=== PATIENT | male | born 1970 | race Caucasian/White ===

== ENCOUNTER 2021-07-13 06:38 | Outpatient (REF) | payer OTHER, SELFPAY ==
[2021-07-13 11:15] LABS: Appearance Urine CLEAR; Color Urine YELLOW; Glucose Urine UA NEG (NEG); Leukocyte Esterase Urine NEG (NEG); Nitrite Urine NEG (NEG); PH 6.5 (5.0-8.0); Urine Blood NEG (NEG); Urine Ketones NEG (NEG); Urine Protein NEG (NEG-TRACE)
[2021-07-13 11:45] LABS: Alanine Aminotransferase 20 U/L (0-40); Albumin Level 4.6 g/dL (3.5-5.0); Alkaline Phosphatase 56 U/L (39-117); Anion Gap 13 (12-20); Aspartate Amino Transferase 19 U/L (5-37); Bilirubin Total 0.5 mg/dL (0.0-1.0); Blood Urea Nitrogen 19 mg/dL (9-16); Calcium 9.8 mg/dL (8.4-10.2); Carbon Dioxide 29 mmol/L (22-29); Chloride 104 mmol/L (96-108); Cholesterol 198 mg/dL; Estimated Glomerular Filt Rate > 60; Glucose Fasting 78 mg/dL (60-99); HDL Cholesterol 51 mg/dL; LDL Cholesterol Calculated 130 mg/dl; Potassium 4.6 mmol/L (3.3-5.1); Sodium 141 mmol/L (135-145); Total Protein 6.9 g/dL (6.5-8.0); Triglycerides 87 mg/dL
[2021-07-13 12:09] LABS: TSH reflex Free T4 1.01 uIU/mL (0.32-4.0)
== END 2021-07-13 06:39 | disposition home or self-care (01) ==
LOC: HO.HMGCLDS 06:38
PROVIDERS: PCP Nurse Practitioner Family; Visit Provider Nurse Practitioner Family
DX: Z00.00 Encounter for general adult medical examination without abnormal findings (principal); Z13.29 Encounter for screening for other suspected endocrine disorder; Z13.220 Encounter for screening for lipoid disorders
CPT/HCPCS: 36415; 80053; 80061; 81003; 84443

== ENCOUNTER → 2022-09-19 11:28 | Outpatient (BNVA) | payer OTHER, SELFPAY | PROVIDERS: PCP Nurse Practitioner Family; Visit Provider Internal Medicine | DX: Z13.89 Encounter for screening for other disorder (principal) ==

== ENCOUNTER 2022-10-27 10:02 | Outpatient (REF) | payer OTHER, SELFPAY ==
[2022-10-27 11:29] LABS: Appearance Urine Clear; Color Urine Yellow; Glucose Urine UA Negative (Negative); Leukocyte Esterase Urine Trace (Negative); Nitrite Urine Negative (Negative); PH 7.5 (5.0-9.0); Specific Gravity - Urine 1.015 (1.005-1.025); UMIC TRIGGER UACC YES; Urine Blood Negative (Negative); Urine Ketones Negative (Negative); Urine Protein Negative (Neg-Trace)
[2022-10-27 11:32] LABS: Bacteria Urine None Seen (None Seen); Hyaline Casts Urine 0-2 /LPF (0-2); RBC Urine 0-2 /HPF (0-2); Squamous Epithelial Cell Urine 0-2 /HPF (0-2); WBC Urine 0-5 /HPF (0-5)
[2022-10-27 11:44] LABS: MANUAL DIFF FLAG NO
[2022-10-27 12:01] LABS: Basophils Absolute Auto 0.1 X10*3/uL (0.0-0.2); Basophils Percent Auto 1.9 % (0-2); Eosinophils Absolute Auto 0.1 X10*3/uL (0.0-0.4); Eosinophils Percent Auto 1.3 % (0-4); Hematocrit 46.3 % (42.0-52.0); Hemoglobin 15.6 g/dl (14.0-18.0); Imm Gran Abs Auto 0.01 X10*3/uL (0.00-0.03); Imm Gran Pct Auto 0.2 % (0.0-0.4); Lymphocytes Absolute Auto 1.9 X10*3/uL (1.2-4.9); Lymphocytes Percent Auto 35.5 % (20-40); Mean Corpuscular HGB Conc 33.7 g/dl (31.0-36.0); Mean Corpuscular Hemoglobin 30.8 pg (27.0-33.0); Mean Corpuscular Volume 91.5 fL (80.0-98.0); Mean Platelet Volume 9.5 fL (9.4-12.4); Monocytes Absolute Auto 0.4 X10*3/uL (0.1-1.2); Monocytes Percent Auto 8.4 % (2-11); Neutrophils Absolute Auto 2.7 x10*3/uL (2.0-8.3); Neutrophils Percent Auto 52.7 % (45-73); Platelet Count 309 X10*3/uL (160-400); Red Blood Count 5.06 X10*6/uL (4.60-5.80); White Blood Count 5.2 X10*3/uL (4.8-10.8)
[2022-10-27 12:07] LABS: Alanine Aminotransferase 27 U/L (0-40); Albumin Level 4.9 g/dL (3.5-5.0); Alkaline Phosphatase 63 U/L (39-117); Anion Gap 11 (12-20); Aspartate Amino Transferase 21 U/L (5-37); Bilirubin Total 0.8 mg/dL (0.0-1.0); Blood Urea Nitrogen 17 mg/dL (9-16); Calcium 9.7 mg/dL (8.4-10.2); Carbon Dioxide 29 mmol/L (22-29); Chloride 106 mmol/L (96-108); Cholesterol 206 mg/dL; Estimated Glomerular Filt Rate > 60; Glucose Fasting 87 mg/dL (60-99); HDL Cholesterol 61 mg/dL; LDL Cholesterol Calculated 133 mg/dl; Potassium 4.6 mmol/L (3.3-5.1); Sodium 141 mmol/L (135-145); Total Protein 7.2 g/dL (6.5-8.0); Triglycerides 60 mg/dL
[2022-10-27 12:24] LABS: Prostate Specific Antigen Scr 0.81 ng/mL (<0.05-4.0); TSH reflex Free T4 0.99 uIU/mL (0.32-4.0)
== END 2022-10-27 10:03 | disposition home or self-care (01) ==
LOC: HO.HMGCLDS 10:02
PROVIDERS: PCP Nurse Practitioner Family; Visit Provider Nurse Practitioner Family
DX: Z00.00 Encounter for general adult medical examination without abnormal findings (principal); Z12.5 Encounter for screening for malignant neoplasm of prostate; E78.5 Hyperlipidemia, unspecified
CPT/HCPCS: 36415; 80053; 80061; 81001; 84153; 84443; 85025

== ENCOUNTER 2023-01-10 14:00 | Outpatient (RCR) | payer OTHER, SELFPAY ==
--- NOTE | 2022-10-27 10:15 | MHC.PT.EP ---
[facility] [place] Office [place] Office [place] Office [address] Nadia Bernstein [address] [phone] F: [phone] F: [phone] F: [phone] F: [phone] Physical Therapy Plan of Care Date of Evaluation: Date of Surgery: Diagnosis: This is a 52 yo male presenting to skilled PT with a script for pain in the R shoulder Assessment: This is a 52 yo male presenting to skilled PT with a script for pain in the R shoulder. 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 He can recall a time that he was doing presses behind his head and started to develop some soreness. Pain improves with rest. He reports full ROM however does have some clicking. Pain is described as sharp. He has been limiting his lifting regime, limiting sleeping on the R shoulder and throwing motions. Pain comes and goes. Denies numbness or tingling, radiating symptoms into shoulder blade or arm. 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 Assessment reveals pain that ranges from 0-3/10. Patient demos decreased shoulder ROM, strength of scapular stabilizers, forward head and anterior GHJ posture. He is very active but modifying activities due to pain that isn't resolving on its own. Based on functional limitations, impaired QOL and decreased pain tolerance patient is a good candidate for skilled PT 2x/wk for 4wks. 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 Manual therapy to restore motion and function. Therapeutic exercise to improve strength and flexibility. Neuromuscular re-education for posture and balance. Therapeutic activities to return to functional activities of daily living. Electronically signed by: Mari Harp PT Please sign and return to therapist. Thank you for your referral.
--- NOTE | 2023-01-10 14:46 | MHC.PT.DC ---
[facility] [place] Office [place] Office [place] Office [address] Nadia Bernstein 140 [facility] [phone] F: [phone] F: [phone] F: [phone] F: [phone] Physical Therapy Discharge Report Diagnosis: This is a 52 yo male presenting to skilled PT with a script for pain in the R shoulder Date of Surgery: Date of Evaluation: 10/27/22 Date of Discharge: 01/10/23 Treatments to Date: 4 Cancellations to Date: 0 No Shows to Date: 0 Discharge Status: Achieved Goals Improved Function Independent with HEP Recommend MD Follow-up Discharge Summary: 01/10: Patient returns again reporting pain has improved, he notices it on occasion when stretching into adduction and after lifting sessions but this is mild. I educated him on impingement positions and posture. He has been faithful with HEP and I also educated him on what to do moving forward with exercises in that he needs to work all muscles not just chest and biceps. He demos WNL and full ROM and strength and cannot really reproduce his pain with any certain movements at our session today. I educated him that if the residual mild pain continues to bother him it may be worth while to get a referral to speak with a orthopedic to talk about a trial of cortisone as this has helped him in the past. At this point, he is I with his program, has met his goals and is ready for DC. DC to HEP. Electronically signed by: Mari Harp PT Please sign and return to therapist. Thank you for your referral.
== END 2023-01-10 14:46 | disposition home or self-care (01) ==
LOC: HO.PTCHIC 14:00
PROVIDERS: PCP Nurse Practitioner Family; Visit Provider Nurse Practitioner Family
DX: M25.511 Pain in right shoulder (principal)
CPT/HCPCS: 97110; 97161

== ENCOUNTER 2023-02-15 10:25 | Day surgery (SDC) | payer OTHER, SELFPAY ==
[2023-02-13 11:58] VITALS: BMI 25.5
[2023-02-13 12:07] VITALS: BMI 25.8
[2023-02-15 10:54] VITALS: BP 126/92; PULSE 54; RESP 16; TEMP 36.3; O2SAT 99
[2023-02-15] MEDS: Lactated Ringers 1,000 ML 100 ML IVCONT (11:12)
--- NOTE | 2023-02-15 11:13 | P.CONAN_ITS ---
[facility] Active Problems Active Problems: All Active Problems (Updated 10/24/22 @ 07:22 by FABIAN Astudillo) Right shoulder pain (Acute) Screening PSA (prostate specific antigen) (Acute) Screen for colon cancer (Acute) Chest discomfort (Acute) Encounter for screening for COVID-19 (Acute) Physical exam (Acute) Family History Family History Father No problems noted. Mother HTN (hypertension) Maternal Grandfather Myocardial infarction Maternal Uncle Myocardial infarction Family history of problems with anesthesia: No Surgical History Surgical History No pertinent past surgical history History of Problems with Anesthesia: Unobtainable Social History Social History Household Members Other:: tony rodriguez Housing: House Are you a primary foster care case manager to a significant other at home: No Do you presently have visiting nurse or other home services: No Alcohol intake: never Patient Tobacco Use Status: Former Tobacco user Tobacco use type: Cigarette Years Smoked: 5 years ago e-Cigarette/Vaping Use: Currently Using Second Hand Smoke Exposure: No Use of substances other than those prescribed or required for medical reasons: Yes Substance Use Type Other:: edible Substance Use Frequency: Daily Have you been hit, kicked, punched, or otherwise hurt by someone within the past year? If so, by whom?: No Are you DNR?: No Advance Directives: No Advance Directives Information Provided: Yes Advance Directives on File: No Recently lost weight without trying: No Eating poorly because of decreased appetite: No Nutrition Risks: No Nutritional Risk Poor oral hygiene: No service: No Current occupational status: employed Current occupation: [employer] Current occupational exposures/hazards: No Cognitive needs: No Hearing needs: No Vision needs: No Meds Allergies Allergy/AdvReac Type Severity Reaction Status Date / Time dimenhydrinate Allergy Unknown UNKNOWN Verified 10/24/22 07:25 [From DRAMAMINE] lisinopril [LISINOPRIL] Allergy Unknown ANGIOEDEMA, Verified 10/24/22 07:25 swollen face/lips/mouth/eyes gasoline Allergy Unknown hives Uncoded 10/24/22 07:25 Active Medications: Current Medications Lactated Ringer's (Lr) 1,000 mls @ 100 mls/hr IVCONT .Q10H STEVE Last Admin: 02/15/23 11:12 Dose: 100 mls/hr Ondansetron HCl (Ondansetron Hcl 4 Mg/2 Ml Vial) 4 mg IVPUSH ONCE PRN PRN Reason: Nausea and Vomiting Exam Exam Date and Time: February 15, 2023 1113 Height,Weight and Vital Signs: Height 5 ft 11 in Weight 83.915 kg Last Vital Signs Temp 97.3 F 02/15/23 10:54 Pulse 54 02/15/23 10:54 Resp 16 02/15/23 10:54 BP 126/92 H 02/15/23 10:54 Pulse Ox 99 02/15/23 10:54 O2 Del Method Room Air 02/15/23 10:54 Airway Mallampati Class: II TM Dist: >3cm Neck ROM: Full Loose/Missing/Broken Teeth: No Heart: rrr Lungs: clear Assessment and Plan Final Anesthetic Review Family History of Problems with Anesthesia: No History of Problems with Anesthesia: Unobtainable NPO: Yes ASA Class: I Final Preanesthetic Review: No Changes in Pt Med Stat, Meds/Allgs Chart Reviewed, Consent Obtained/Reviewed and Anes Risks/Benef Reviewed Patient Risk: Low Procedure Risk: Low Anesthetic Plan Anesthetic Plan: MAC: Disposition: Standard PACU
--- NOTE | 2023-02-15 12:48 | P.OP_ITS ---
Operative Note Operative Note Date of Service: 02/15/23 Narrative: Procedure: Colonoscopy Indication: Screening Endoscopist: Zeina Jacobson MD Anesthesia Provider: Lauro Moses MD Anesthesia type: MAC Instrument: Olympus [id number]-H190L Consent: Indication, risks vs benefits, and alternatives were discussed with the patient who gave written informed consent to proceed. EKG, pulse, pulse oximetry and blood pressure were monitored throughout the procedure. Please see anesthesia flowsheet. Procedure: The patient was brought to the procedure room and placed in the left lateral decubitus position. IV medications were administered by the anesthesia provider in attendance. A digital rectal exam was performed which was normal. The colonoscope was then inserted through the anus and advanced through the colon to the cecum at 75 cm,and terminal ileum. Mucosa was carefully examined under high definition white light as the instrument was slowly withdrawn in a retrograde panoramic fashion. Retroflexion was performed in rectum. The procedure was not difficult. There were no immediate obvious complications. The quality of the prep was BBPS: 3+2+3 = adequate Withdrawal time 8 minutes. Limitations: No limitations. Findings: Mucosa: Normal to cecum and terminal ileum. Protruding lesions: * Medium internal hemorrhoids without stigmata of recent bleeding. Impression: 1. Normal colon and terminal ileum mucosa 2. Internal hemorrhoids Recommendations: - Repeat colonoscopy in 10 years for asymptomatic colorectal cancer screening.
[2023-02-15 12:54] VITALS: BP 92/58; PULSE 62; RESP 15; TEMP 36.9; O2SAT 97
[2023-02-15 13:10] VITALS: BP 109/71; PULSE 47; RESP 16; TEMP 36.4; O2SAT 100
== END 2023-02-15 14:04 | disposition home or self-care (01) ==
PROVIDERS: PCP Nurse Practitioner Family; Visit Provider Internal Medicine
PROC: 0DJD8ZZ Inspection of Lower Intestinal Tract, Via Natural or Artificial Opening Endoscopic (ICD-10-PCS; CPT 45378; principal; 2023-02-15 12:00)
DX: Z12.11 Encounter for screening for malignant neoplasm of colon (principal); K64.8 Other hemorrhoids; Z88.8 Allergy status to other drugs, medicaments and biological substances; F17.290 Nicotine dependence, other tobacco product, uncomplicated; F12.90 Cannabis use, unspecified, uncomplicated
CPT/HCPCS: 45378; J2371

== ENCOUNTER → 2023-02-15 10:25 | Outpatient (BNV) | payer OTHER, SELFPAY | PROVIDERS: PCP Nurse Practitioner Family; Visit Provider Internal Medicine | DX: Z12.11 Encounter for screening for malignant neoplasm of colon (principal); K64.8 Other hemorrhoids | CPT/HCPCS: 45378 ==

== ENCOUNTER 2023-03-01 14:09 | Outpatient (AMB) | payer OTHER, SELFPAY ==
[2023-03-01 14:21] VITALS: BMI 26.7
--- NOTE | 2023-03-01 14:21 | A.OFFVIS_ITS ---
Intake Vital Signs 03/01/23 14:21 Height 5 ft 11 in Weight 191 lb 12.835 oz BMI 26.7 Blood Pressure Location Lt brachial Position Sitting Intake Visit Reasons: S/P [place] screening Intake Note: Davon presents in the office as a follow up colonoscopy screening. CC: He states that he is here for the results to the colonoscopy. Allergies dimenhydrinate [From DRAMAMINE] Allergy (Unknown, Verified 03/01/23 14:22) UNKNOWN lisinopril [LISINOPRIL] Allergy (Unknown, Verified 03/01/23 14:22) ANGIOEDEMA, swollen face/lips/mouth/eyes gasoline Allergy (Unknown, Uncoded 03/01/23 14:22) hives HPI HPI Comments History of Present Illness Details 52 year old male presenting to the office for follow up. 09/19/22: Patient is at average risk of colon cancer due to no family history of colon cancer or colon polyps in first degree relatives. Patient does not have any other gastrointestinal symptoms to include abdominal pain, nausea, vomiting, diarrhea, blood in stool, weight loss. Labs not available, pt reminded to get them done in the next couple of weeks. Pertinent social hx includes previous hx of heavy etOH use disorder, sober for 8 years now. Reports having a 3 week long ICU admission due to severe withdrawal. Previous tobacco smoker, now vapes occ. 02/15/23: Impression: 1. Normal colon and terminal ileum mucosa 2. Internal hemorrhoids Recommendations: - Repeat colonoscopy in 10 years for asymptomatic colorectal cancer screening. 03/01/23: No gastrointestinal issues. Happy/surprised to hear results of the colo. [facility] Surgical History (Updated 03/01/23 @ 14:23 by KIRAN Ruiz) Hx of colonoscopy No pertinent past surgical history Family History Father No problems noted. Mother HTN (hypertension) Maternal Grandfather Myocardial infarction Maternal Uncle Myocardial infarction Social History Household Members Other:: tony rodriguez Housing: House Are you a primary vision care associate to a significant other at home: No Do you presently have visiting nurse or other home services: No Alcohol intake: never Patient Tobacco Use Status: Former Tobacco user Tobacco use type: Cigarette Years Smoked: 5 years ago e-Cigarette/Vaping Use: Currently Using Second Hand Smoke Exposure: No service: No Current occupational status: employed Current occupation: [employer] Current occupational exposures/hazards: No Cognitive needs: No Hearing needs: No Vision needs: No Review of Systems Const All systems reviewed & are unremarkable except as noted in HPI and below Physical Exam Vital Signs: BMI result Body Mass Index 26.7 Gen appear: NAD HEENT: nonicteric, no cervical lymphadenopathy Chest: CTA CVS: Regular S1/S2 Abd: soft, nontender, nondistended, bowel sounds + Ext: no peripheral edema Neuro: A/Ox3, noted to move all extremities spontaneously Psych: interacting appropriately Assessment & Plan Assessment & Plan (1) Screen for colon cancer: Code(s): Z12.11 - Encounter for screening for malignant neoplasm of colon Plan No polyps noted on colo this month. Repeat colo recommended in 10 years. Pt also planning to see a dietitian for nutritional advice. Follow up PRN. Coding Level of Care Code Est Pt Level 3 (38163) Diagnoses Screen for colon cancer Z12.11
== END 2023-03-01 15:17 | disposition home or self-care (01) ==
PROVIDERS: PCP Nurse Practitioner Family; Visit Provider Internal Medicine
DX: K64.8 Other hemorrhoids (principal); Z71.2 Person consulting for explanation of examination or test findings
CPT/HCPCS: 99213

== ENCOUNTER → 2023-03-01 14:09 | Outpatient (BNVA) | payer OTHER, SELFPAY | PROVIDERS: PCP Nurse Practitioner Family; Visit Provider Internal Medicine ==

== ENCOUNTER 2023-03-23 06:49 | Outpatient (REF) | payer OTHER, SELFPAY ==
--- NOTE | ~2023-03-23 | XR_ITS ---
EXAMINATION: XR SHOULDER, RIGHT CLINICAL INFORMATION: Right shoulder pain COMPARISON: None available. TECHNIQUE: Three views of the right shoulder. FINDINGS: Mild glenohumeral osteoarthritis with small marginal osteophytes. Minimal acromioclavicular osteoarthritis. No fracture or malalignment. XR/XR shoulder RT min 2V IMPRESSION: Mild glenohumeral and minimal acromioclavicular osteoarthritis.
== END 2023-03-23 06:50 | disposition home or self-care (01) ==
LOC: HO.HOSX 06:49
PROVIDERS: Visit Provider Physician Assistant
DX: M25.511 Pain in right shoulder (principal); M75.21 Bicipital tendinitis, right shoulder; M75.81 Other shoulder lesions, right shoulder
CPT/HCPCS: 20610; 73030; J1040

== ENCOUNTER 2023-03-23 14:53 | Outpatient (AMB) | payer OTHER, SELFPAY ==
--- NOTE | 2023-03-23 15:01 | MHC.OFFVIS ---
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 Patient reports pain has been present since september, he believes he did something to his shoulder. isolated to shoulder area. He will have throbbing pain with certain activities such as tennis and lifting weights. He completed PT and continues to do at home exercises. Limited ROM. He is interested in discussing a cortisone injection. 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 He states he has throbbing pain and limited ROM in his shoulder with certain activities like playing tennis or working out. He has attended physical therapy and continues to work on his home exercises. He is interested in discussing about a cortisone injection. [facility] Surgical History Hx of colonoscopy No pertinent past surgical history Family History Father No problems noted. Mother HTN (hypertension) Maternal Grandfather Myocardial infarction Maternal Uncle Myocardial infarction Social History (Updated 03/23/23 @ 15:12 by KIRAN Gonzalez) Household Members Other:: tony rodriguez Housing: House Are you a primary care support representative to a significant other at home: No Do you presently have visiting nurse or other home services: No Alcohol intake: never Patient Tobacco Use Status: Current everyday Tobacco user Tobacco use type: Cigarette Years Smoked: 5 years ago e-Cigarette/Vaping Use: Currently Using Second Hand Smoke Exposure: No service: No Current occupational status: employed Current occupation: [employer] Current occupational exposures/hazards: No Cognitive needs: No Hearing needs: No Vision needs: No Review of Systems Const All systems reviewed & are unremarkable except as noted in HPI and below Physical Exam Vital Signs: BMI result Body Mass Index 26.6 Const General: cooperative, healthy appearing, comfortable, no acute distress, well developed and alert Orientation/consciousness: patient oriented x3 HEENT Head: Yes normal to inspection, Yes normocephalic and Yes atraumatic Eyes General: appearance normal, both eyes and all related structures Resp Effort & Inspection: normal respiratory effort and able to speak in complete sentences Cardio Rate: regular rate Peripheral pulses: Peripheral pulses 2+ throughout GI Palpation (GI): Soft to palpation Skin Lesions: no lesions Rashes: no rashes Neuro General: patient oriented x3 Extrem Other: Right shoulder normal to inspection. Tenderness over the bicipital groove and along the deltoid region of the shoulder. Forward flexion to 175, external rotation to 90, internal rotation to S1. 5/5 RTC strength. Positive [place] and [place]'s. NVI. Office Procedures Joint Injection/Drain Joint Injection/Drain Primary Site: right shoulder Prep: site was prepped using aseptic technique, ethochloride spray was applied and injection warnings given Injected: 80 mg of, DepoMedrol, with 8 mL of, 1% plain lidocaine and in the subcromial space Approach Used: posterolateral Procedure: The patient tolerated the procedure well and there was some relief with the local anesthesia Coding 29606 - Glenohumeral/Tronchanteric Bursa/Intraarticular Procedure code (CPT) selection complete Results Reviewed Results Reviewed: 03/23/23 15:34 Lidocaine HCl 2 % MPF [Xylocaine 2 % MPF] 5 ml .ROUTE .STK-MED ONE methylPREDNISolone acetate [DEPO-MedroL] 80 mg .ROUTE .STK-MED ONE Xrays were obtained in the office today and personally reviewed by me of the right shoulder show mild ghj oa with type two acromion Assessment & Plan Assessment & Plan (1) Biceps tendonitis on right: Code(s): M75.21 - Bicipital tendinitis, right shoulder (2) Tendinitis of right rotator cuff: Code(s): M75.81 - Other shoulder lesions, right shoulder Plan We discussed options today which include steroid injection. They did consent to move forward with the right shoulder injection, which was tolerated well. I recommended rest, ice and elevation and OTC anti-inflammatories PRN for discomfort. If symptoms persist or worsens over the next 6-8 weeks, patient will contact the office, otherwise follow-up as needed. Orders: Orders XR shoulder RT min 2V Today M25.511 - Pain in right shoulder Patient Instructions: Scribed for Edgar Freitas PA-C, by Kirt Boswell, medical records manager, on 03/23/2023 at 3:00 PM EST. I, Edgar Freitas PA-C, have personally reviewed and agree with the information entered by the scribe. Coding Level of Care Code New Pt Level 3 (68027) Diagnoses Biceps tendonitis on right M75.21 Tendinitis of right rotator cuff M75.81 CPT Codes Coding - Joint 7: 59955 - Glenohumeral/Tronchanteric Bursa/Intraarticular ([id number])
[2023-03-23 15:15] VITALS: BMI 26.6
== END 2023-03-23 15:56 | disposition home or self-care (01) ==
PROVIDERS: PCP Nurse Practitioner Family; Visit Provider Physician Assistant
DX: M75.21 Bicipital tendinitis, right shoulder (principal); M75.81 Other shoulder lesions, right shoulder
CPT/HCPCS: 20610; 99204

== ENCOUNTER 2023-07-05 10:27 | Outpatient (AMB) | payer OTHER, SELFPAY ==
--- NOTE | 2023-07-05 10:30 | A.OFFPC_ITS ---
Vital Signs 07/05/23 10:32 Height 5 ft 11 in Weight 172 lb BMI 24.0 BP 130/82 Blood Pressure Location Lt brachial Position Sitting Pulse 64 Pulse Source Pulse Oximeter Pulse Oximetry (%) 98 Oxygen Delivery Method Room Air Intake Visit Reasons: PE Intake Note: Patient here for physical exam. last colonoscopy in December Allergies dimenhydrinate [From DRAMAMINE] Allergy (Unknown, Verified 07/05/23 10:46) UNKNOWN lisinopril [LISINOPRIL] Allergy (Unknown, Verified 07/05/23 10:46) ANGIOEDEMA, swollen face/lips/mouth/eyes gasoline Allergy (Unknown, Uncoded 07/05/23 10:46) hives Medication List - Last Reconciled 07/05/23 by FABIAN Astudillo nicotine 1 patch transdermal DAILY 30 days Tobacco use date assessed: 07/05/23 Dental Screening Dental Screen Date: 07/05/23 Did you have a dental visit in the last 12 months?: No Did you have a dental problem in the last 6 months where you did not have access to dental care?: No Was dental information given to patient?: No HPI PE HPI Details Pt is here for a PE. Will order labs. Colon screen is up to date. PSA is up to date. Denies dribbling with urination, weak stream, and frequent nocturia. PFSH Surgical History Hx of colonoscopy No pertinent past surgical history Family History Father No problems noted. Mother HTN (hypertension) Maternal Grandfather Myocardial infarction Maternal Uncle Myocardial infarction Social History Household Members Other:: tony rodriguez Housing: House Are you a primary care coordination manager to a significant other at home: No Do you presently have visiting nurse or other home services: No Alcohol intake: never Patient Tobacco Use Status: Current someday Tobacco user Tobacco use type: Cigarette Years Smoked: 5 years ago e-Cigarette/Vaping Use: Currently Using Second Hand Smoke Exposure: No service: No Current occupational status: employed Current occupation: [employer] Current occupational exposures/hazards: No Cognitive needs: No Hearing needs: No Vision needs: No Questionnaire PHQ-9 Over the last 2 weeks, how often have you been bothered by any of the following problems? 1. Little interest or pleasure in doing things: not at all 2. Feeling down, depressed, or hopeless: not at all 3. Trouble falling or staying asleep, or sleeping too much: not at all 4. Feeling tired or having little energy: not at all 5. Poor appetite or overeating: not at all 6. Feeling bad about yourself - or that you are a failure or have let yourself or your family down: not at all 7. Trouble concentrating on things, such as reading the newspaper or watching television: not at all 8. Moving or speaking so slowly that other people could have noticed. Or the opposite - being so fidgety or restless that you have been moving around a lot more than usual: not at all 9. Thoughts that you would be better off or of hurting yourself in some way: not at all Total score: 0 Depression Screening Interpretation: Negative Depression Screening Done: Yes 12442 - PHQ-9 Billing: Yes Source: Developed by Drs. Ishmael Peres, Maria Villasenor, Alex Ureña and colleagues, with an educational karyn from [employer]. Thrive Questionnaire Date Thrive assessed: 07/05/23 I am a: Patient What is your living situation today?: I have a steady place to live Within the past 12 months, did the food you bought not last and you didn't have the money to get more?: Never true Within the past 12 months, did you worry whether your food would run out before you got money to buy more?: Never true Do you have trouble paying for medicines?: No Do you have trouble getting transportation to medical appointments?: No Do you have trouble paying your heating and electricity bill?: No Do you have trouble taking care of your child, family member or friend?: No Do you have trouble with day-to-day activities such as bathing, preparing meals, shopping, managing finances, etc.?: No Are you currently unemployed and looking for a job?: No Are you interested in more education?: No AUDIT C Alcohol Use Questionnaire (AUDIT-C) 1. How often do you have a drink containing alcohol?: Never 3. How often do you have six or more drinks on one occasion?: Never Total Score: 0 Score Reviewed/Action Taken: No LYNN-7 AMB Questionnaire LYNN-7 Date LYNN - 7 assessed: 07/05/23 Feeling nervous, anxious, or on edge: 0 = Not at all Not being able to stop or control worryin = Not at all Worrying too much about different things: 0 = Not at all Trouble relaxin = Not at all Being so restless that it is hard to sit still: 0 = Not at all Becoming easily annoyed or irritable: 0 = Not at all Feeling afraid as if something awful might happen: 0 = Not at all Total LYNN-7 score (0-4 normal; 5-9 mild; 10-14 moderate; 15-21 severe): 0 Source: Developed by Drs. Ishmael Peres, Maria Villasenor, Alex Ureña and colleagues, with an educational karyn from [employer]. LYNN-7 Assessment Billing LYNN-7 Assessment Tool: LYNN-7 Assessment 63255 Review of Systems Const Denies chills and Denies fever(s) Eyes Denies blurry vision ENT Denies vertigo, Denies dizziness and Denies sore throat Card Denies chest pain at rest, Denies chest pain with activity, Denies diaphoresis, Denies dyspnea and Denies dyspnea on exertion Resp Denies cough, Denies dyspnea, Denies dyspnea on exertion and Denies wheezing GI Denies abdominal pain, Denies melena, Denies hematochezia, Denies constipation, Denies diarrhea and Denies loose stools Denies hematuria Musc Denies numbness and Denies tingling Skin/Breast Denies lesions Neuro Denies vertigo, Denies dizziness, Denies numbness and Denies tingling Psych Denies anxiety, Denies depression, Denies homicidal ideation, Denies suicidal ideation and Denies other (substance abuse) Aller/Immun Denies wheezing Physical exam (Primary Care) Vital Signs: Last Vital Signs Pulse 64 07/05/23 10:32 BP 130/82 07/05/23 10:32 Pulse Ox 98 07/05/23 10:32 Oxygen Delivery Method Room Air 07/05/23 10:32 BMI result Body Mass Index 24.0 Tobacco/Smoking Status: Tobacco use Status Tobacco use date assessed 07/05/23 07/05/23 10:34 Patient Tobacco Use Status Current someday Tobacco 07/05/23 10:34 Tobacco use type Cigarette 07/05/23 10:32 e-Cigarette/Vaping Use Currently Using 07/05/23 10:32 Depression Screening Interpretation: Negative Thrive Assessment: Date of Thrive Assessment Date Thrive assessed 07/04/22 07/05/23 10:32 Const General: cooperative Nutritional Appearance: well nourished Orientation/consciousness: patient oriented x3 HENMT Head: Yes normal to inspection, Yes normocephalic and Yes atraumatic Ears: TM's normal bilaterally Eyes General: appearance normal, both eyes and all related structures Alignment and Position: alignment normal and position normal Neck Neck: Yes normal visual inspection and Yes no lymphadenopathy Thyroid: Thyroid normal Resp Effort & Inspection: normal respiratory effort Auscultation: clear to auscultation bilaterally Cardio Rate: regular rate Rhythm: regular rhythm Heart sounds: S1 normal heart sound present, S2 normal heart sound present and no murmurs GI Palpation (GI): Soft to palpation and nontender Auscultation: normal bowel sounds Male General Exam: Yes normal external exam Penis: normal penis Scrotum: scrotum normal, testes descended bilaterally and no inguinal hernias Testes: no testicular mass Skin Rashes: no rashes Neuro General: patient oriented x3, moves all extremities, no focal motor deficits and deep tendon reflexes 2+ bilaterally Romberg Test: Negative Psych Appearance: grossly normal Mental Status: mental status grossly normal Speech and movement: Normal speech and movement present Affect: normal affect Attitude: cooperative Thought process: Normal thought process present Thought content: Normal thought content present Insight: Good insight present (Psych) Judgement: Good judgement present (Psych) Assessment and Plan Assessment & Plan (1) Physical exam: Code(s): Z00.00 - Encounter for general adult medical examination without abnormal findings Plan: Labs ordered (2) Screening PSA (prostate specific antigen): Code(s): Z12.5 - Encounter for screening for malignant neoplasm of prostate Plan: PSA ordered Plan The patient agreed to the use of a medical delivery driver for this encounter. Scribed for FABIAN Sandoval by michelle Valladares scribe, on 07/05/2023 at 10:45 EST. Orders: Orders Complete Blood Count Auto Diff Today Z00.00 - Encounter for general adult medical examination without abnormal findings Comprehensive [place]. Panel Fast Today Z00.00 - Encounter for general adult medical examination without abnormal findings TSH reflex Free T4 Today Z00.00 - Encounter for general adult medical examination without abnormal findings Lipid Panel Today Z00.00 - Encounter for general adult medical examination without abnormal findings Prostate Specific Antigen Scr Today Z12.5 - Encounter for screening for malignant neoplasm of prostate UA CC w/rflx Micro + Cult Today Z00.00 - Encounter for general adult medical examination without abnormal findings Coding Level of Care Code Est Pt Prev Care 40-64y(10709) Diagnoses Physical exam Z00.00 Screening PSA (prostate specific antigen) Z12.5 Additional Codes LYNN-7 Assessment Billing - LYNN-7 Assessment Tool: LYNN-7 Assessment 40591 ([id number])
[2023-07-05 10:32] VITALS: BP 130/82; PULSE 64; O2SAT 98; BMI 24.0
== END 2023-07-05 13:47 | disposition home or self-care (01) ==
PROVIDERS: Visit Provider Nurse Practitioner Family
DX: Z00.00 Encounter for general adult medical examination without abnormal findings (principal); Z12.5 Encounter for screening for malignant neoplasm of prostate
CPT/HCPCS: 99396

== ENCOUNTER 2023-09-07 09:14 | Outpatient (REF) | payer OTHER, SELFPAY ==
[2023-09-07 11:18] LABS: MANUAL DIFF FLAG NO
[2023-09-07 11:30] LABS: Basophils Absolute Auto 0.1 X10*3/uL (0.0-0.2); Basophils Percent Auto 1.8 % (0-2); Eosinophils Percent Auto 0.5 % (0-4); Hematocrit 49.4 % (42.0-52.0); Hemoglobin 16.9 g/dl (14.0-18.0); Imm Gran Abs Auto 0.01 X10*3/uL (0.00-0.03); Imm Gran Pct Auto 0.2 % (0.0-0.4); Lymphocytes Absolute Auto 1.5 X10*3/uL (1.2-4.9); Lymphocytes Percent Auto 26.6 % (20-40); Mean Corpuscular HGB Conc 34.2 g/dl (31.0-36.0); Mean Corpuscular Hemoglobin 31.2 pg (27.0-33.0); Mean Corpuscular Volume 91.1 fL (80.0-98.0); Mean Platelet Volume 9.1 fL (9.4-12.4); Monocytes Absolute Auto 0.4 X10*3/uL (0.1-1.2); Monocytes Percent Auto 7.4 % (2-11); Neutrophils Absolute Auto 3.6 x10*3/uL (2.0-8.3); Neutrophils Percent Auto 63.5 % (45-73); Platelet Count 327 X10*3/uL (160-400); Red Blood Count 5.42 X10*6/uL (4.60-5.80); Red Cell Distribution Width 11.7 % (11.0-16.0); White Blood Count 5.7 X10*3/uL (4.8-10.8)
[2023-09-07 11:38] LABS: Appearance Urine Clear; Color Urine Yellow; Glucose Urine UA Negative (Negative); Leukocyte Esterase Urine Negative (Negative); Nitrite Urine Negative (Negative); PH 7.5 (5.0-9.0); Urine Blood Negative (Negative); Urine Ketones Negative (Negative); Urine Protein Negative (Neg-Trace)
[2023-09-07 12:24] LABS: Alanine Aminotransferase 28 U/L (0-40); Anion Gap 16 (12-20); Aspartate Amino Transferase 23 U/L (5-37); Bilirubin Total 0.7 mg/dL (0.0-1.0); Blood Urea Nitrogen 14 mg/dL (9-16); Carbon Dioxide 28 mmol/L (22-29); Chloride 104 mmol/L (96-108); Cholesterol 223 mg/dL (<200); Estimated Glomerular Filt Rate > 60; Glucose Fasting 89 mg/dL (60-99); HDL Cholesterol 61 mg/dL (>40); LDL Cholesterol Calculated 146 mg/dL (<100); Potassium 4.9 mmol/L (3.3-5.1); Sodium 143 mmol/L (135-145); Triglycerides 80 mg/dL (<150)
[2023-09-07 12:29] LABS: Alkaline Phosphatase 68 U/L (39-117)
[2023-09-07 12:32] LABS: Prostate Specific Antigen Scr 0.99 ng/mL (<0.05-4.0)
[2023-09-07 12:42] LABS: TSH reflex Free T4 0.76 uIU/mL (0.32-4.0)
== END 2023-09-07 09:15 | disposition home or self-care (01) ==
LOC: HO.HMGCLDS 09:14
PROVIDERS: PCP Nurse Practitioner Family; Visit Provider Nurse Practitioner Family
DX: Z00.00 Encounter for general adult medical examination without abnormal findings (principal); Z20.2 Contact with and (suspected) exposure to infections with a predominantly sexual mode of transmission; Z12.5 Encounter for screening for malignant neoplasm of prostate
CPT/HCPCS: 36415; 80053; 80061; 81003; 84153; 84443; 85025

== ENCOUNTER 2023-12-06 09:17 | Outpatient (REF) | payer OTHER, SELFPAY ==
[2023-12-06 11:15] LABS: Alanine Aminotransferase 25 U/L (0-40); Albumin Level 4.7 g/dL (3.5-5.0); Alkaline Phosphatase 65 U/L (39-117); Anion Gap 12 (12-20); Aspartate Amino Transferase 24 U/L (5-37); Bilirubin Total 0.8 mg/dL (0.0-1.0); Blood Urea Nitrogen 17 mg/dL (9-16); Calcium 9.7 mg/dL (8.4-10.2); Carbon Dioxide 26 mmol/L (22-29); Chloride 106 mmol/L (96-108); Cholesterol 137 mg/dL (<200); Estimated Glomerular Filt Rate > 60; Glucose Fasting 84 mg/dL (60-99); HDL Cholesterol 53 mg/dL (>40); LDL Cholesterol Calculated 73 mg/dL (<100); Potassium 4.1 mmol/L (3.3-5.1); Sodium 140 mmol/L (135-145); Total Protein 7.2 g/dL (6.5-8.0); Triglycerides 57 mg/dL (<150)
== END 2023-12-06 09:18 | disposition home or self-care (01) ==
LOC: HO.HMGCLDS 09:17
PROVIDERS: PCP Nurse Practitioner Family; Visit Provider Nurse Practitioner Family
DX: E78.5 Hyperlipidemia, unspecified (principal)
CPT/HCPCS: 36415; 80053; 80061

== ENCOUNTER 2023-12-07 15:22 | Outpatient (AMB) | payer OTHER, SELFPAY ==
[2023-12-07 15:24] VITALS: BP 110/78; PULSE 64; O2SAT 95; BMI 26.5
--- NOTE | 2023-12-07 15:24 | MHC.PC.OV ---
Vital Signs 12/07/23 15:24 Height 5 ft 11 in Weight 190 lb 6 oz BMI 26.5 BP 110/78 Blood Pressure Location Rt brachial Position Sitting Pulse 64 Pulse Source Pulse Oximeter Pulse Oximetry (%) 95 Oxygen Delivery Method Room Air Intake Visit Reasons: cholesterol medication f/u with labs Allergies dimenhydrinate [From DRAMAMINE] Allergy (Unknown, Verified 12/07/23 15:54) UNKNOWN lisinopril [LISINOPRIL] Allergy (Unknown, Verified 12/07/23 15:54) ANGIOEDEMA, swollen face/lips/mouth/eyes gasoline Allergy (Unknown, Uncoded 12/07/23 15:54) hives Medication List - Last Reconciled 12/07/23 by FABIAN Astudillo atorvastatin 10 mg PO BEDTIME Tobacco use date assessed: 12/07/23 Dental Screening Dental Screen Date: 12/07/23 Did you have a dental visit in the last 12 months?: No Did you have a dental problem in the last 6 months where you did not have access to dental care?: No Was dental information given to patient?: No HPI cholesterol medication f/u with labs HPI Details Dyslipidemia: Pt is taking atorvastatin 10mg. Pt's last lipids were WNL. He has been working on his diet and remaining active. Denies chest pain, shortness of breath, and dizziness. ON LICENSE OF [facility] Surgical History Hx of colonoscopy No pertinent past surgical history Family History Father No problems noted. Mother HTN (hypertension) Maternal Grandfather Myocardial infarction Maternal Uncle Myocardial infarction Social History Household Members Other:: tony rodriguez Housing: House Are you a primary complex care nurse practitioner to a significant other at home: No Do you presently have visiting nurse or other home services: No Alcohol intake: never Patient Tobacco Use Status: Current someday Tobacco user Tobacco use type: Cigarette Years Smoked: 5 years ago e-Cigarette/Vaping Use: Currently Using Second Hand Smoke Exposure: No service: No Current occupational status: employed Current occupation: [employer] Current occupational exposures/hazards: No Cognitive needs: No Hearing needs: No Vision needs: No Questionnaire PHQ-9 Over the last 2 weeks, how often have you been bothered by any of the following problems? 89427 - PHQ-9 Billing: Patient declined-do not bill Source: Developed by Drs. Ishmael Peres, Maria Villasenor, Alex Ureña and colleagues, with an educational karyn from [employer]. Thrive Questionnaire Date Thrive assessed: 07/05/23 AUDIT C Alcohol Use Questionnaire (AUDIT-C) 1. How often do you have a drink containing alcohol?: Never 3. How often do you have six or more drinks on one occasion?: Never Total Score: 0 Score Reviewed/Action Taken: Yes LYNN-7 AMB Questionnaire LYNN-7 Date LYNN - 7 assessed: 07/05/23 Source: Developed by Drs. Ishmael Peres, Maria Villasenor, Alex Ureña and colleagues, with an educational karyn from [employer]. LYNN-7 Assessment Billing LYNN-7 Assessment Tool: pt declined-do not bill Review of Systems Const Reports as per HPI Physical exam (Primary Care) Vital Signs: Last Vital Signs Pulse 64 12/07/23 15:24 BP 110/78 12/07/23 15:24 Pulse Ox 95 12/07/23 15:24 Oxygen Delivery Method Room Air 12/07/23 15:24 BMI result Body Mass Index 26.5 Tobacco/Smoking Status: Tobacco use Status Tobacco use date assessed 12/07/23 12/07/23 15:30 Patient Tobacco Use Status Current someday Tobacco 12/07/23 15:26 Tobacco use type Cigarette 12/07/23 15:26 e-Cigarette/Vaping Use Currently Using 12/07/23 15:26 Thrive Assessment: Date of Thrive Assessment Date Thrive assessed 07/05/23 12/07/23 15:26 Const General: cooperative Orientation/consciousness: patient oriented x3 Resp Effort & Inspection: normal respiratory effort Auscultation: clear to auscultation bilaterally Cardio Rate: regular rate Rhythm: regular rhythm Heart sounds: S1 normal heart sound present and S2 normal heart sound present Neuro General: patient oriented x3 Psych Appearance: grossly normal Mental Status: mental status grossly normal Speech and movement: Normal speech and movement present Affect: normal affect Attitude: cooperative Thought process: Normal thought process present Thought content: Normal thought content present Insight: Good insight present (Psych) Judgement: Good judgement present (Psych) Assessment and Plan Assessment & Plan (1) Dyslipidemia: Code(s): E78.5 - Hyperlipidemia, unspecified Plan: statin is working great, continue use. Plan The patient agreed to the use of a certified medical assistant for this encounter. Scribed for FABIAN Sandoval by Martha Gordon certified medical assistant, on 12/07/2023 at 15:30 EST. Medications: Refilled atorvastatin 10 mg PO BEDTIME 90 tabs 3RF Coding Level of Care Code Est Pt Level 3 (11349) Diagnoses Dyslipidemia E78.5
== END 2023-12-07 16:18 | disposition home or self-care (01) ==
PROVIDERS: PCP Nurse Practitioner Family; Visit Provider Nurse Practitioner Family
DX: E78.5 Hyperlipidemia, unspecified (principal)
CPT/HCPCS: 99213

== ENCOUNTER 2024-02-13 09:41 | Outpatient (AMB) | payer OTHER, SELFPAY ==
--- NOTE | 2024-02-13 09:43 | MHC.OFFWIV ---
Intake Vital Signs 02/13/24 09:44 Height 5 ft 11 in Weight 188 lb BMI 26.2 BP 102/74 Blood Pressure Location Rt brachial Position Sitting Pulse 74 Pulse Source Pulse Oximeter Temp 98.3 F Temp Source Oral Pulse Oximetry (%) 97 Oxygen Delivery Method Room Air Intake Visit Reasons: stomach ache Intake Note: pt c/o stomach ache. Started Monday evening Patient Tobacco Use Status: Current someday Tobacco user Allergies dimenhydrinate [From DRAMAMINE] Allergy (Unknown, Verified 02/13/24 09:44) UNKNOWN lisinopril [LISINOPRIL] Allergy (Unknown, Verified 02/13/24 09:44) ANGIOEDEMA, swollen face/lips/mouth/eyes gasoline Allergy (Unknown, Uncoded 02/13/24 09:44) hives Do you need a note to return to daycare/school/sports/work: No HPI HPI Comments History of Present Illness Details 53-year-old male presents today complaining of left sided lower abdominal pain that is palpable in nature. He denies any nausea vomiting diarrhea constipation. He states he feels it mostly when he standing or moving around the pain decreases well and prone position. He has no palpable lump but hit is very point tender in 1 area. Denies any particular injury or trauma. 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 Mother HTN (hypertension) Maternal Grandfather Myocardial infarction Maternal Uncle Myocardial infarction Social History Household Members Other:: tony rodriguez Housing: House Are you a primary critical care nurse practitioner to a significant other at home: No Do you presently have visiting nurse or other home services: No Alcohol intake: never Patient Tobacco Use Status: Current someday Tobacco user Tobacco use type: Cigarette Years Smoked: 5 years ago e-Cigarette/Vaping Use: Currently Using Second Hand Smoke Exposure: No service: No Current occupational status: employed Current occupation: [employer] Current occupational exposures/hazards: No Cognitive needs: No Hearing needs: No Vision needs: No Review of Systems Const All systems reviewed & are unremarkable except as noted in HPI and below Physical Exam Vital Signs: Last Vital Signs Temp 98.3 F 02/13/24 09:44 Pulse 74 02/13/24 09:44 BP 102/74 02/13/24 09:44 Pulse Ox 97 02/13/24 09:44 Oxygen Delivery Method Room Air 02/13/24 09:44 BMI result Body Mass Index 26.2 GI Inspection: Yes normal to inspection Palpation (GI): Tenderness to palpation present (GI) in the LLQ and Hernia present (No palpable mass but the pain was in the area of inguinal hernia) Auscultation: normal bowel sounds Results AMB Urinalysis, Automated UA Leukoctes 0 Lisy/uL Last Edit by Maco Roca CMA on 02/13/24 10:26 UA Nitrite Negative Last Edit by Maco Roca CMA on 02/13/24 10:26 UA Urobilinogen 0.2 mg/dL Last Edit by Maco Roca CMA on 02/13/24 10:26 UA Protein 0 mg/dL Last Edit by Maco Roca CMA on 02/13/24 10:26 UA pH 6.0 Last Edit by Maco Roca CMA on 02/13/24 10:26 UA Blood 0 Navi/uL Last Edit by Maco Roca CMA on 02/13/24 10:26 UA Specific [place] 1.020 Last Edit by Maco Roca CMA on 02/13/24 10:26 UA Ketone Negative Last Edit by Maco Roca CMA on 02/13/24 10:26 UA Bilirubin 0 mg/dL Last Edit by Maco Roca CMA on 02/13/24 10:26 UA Glucose 0 mg/dL Last Edit by Maco Roca CMA on 02/13/24 10:26 Results Reviewed Results Reviewed: Laboratory Last Values Urine pH (Auto) 6.0 02/13/24 10:25 Specific [place] (Auto) 1.020 02/13/24 10:25 Urine Protein (Auto) 0 mg/dL 02/13/24 10:25 Glucose (UA)(Auto) 0 mg/dL 02/13/24 10:25 Urine Ketones (Auto) Negative 02/13/24 10:25 Urine Blood (Auto) 0 Navi/uL 02/13/24 10:25 Urine Nitrite (Auto) Negative 02/13/24 10:25 Urine Bilirubin (Auto) 0 mg/dL 02/13/24 10:25 Urine Urobilinogen (Auto) 0.2 mg/dL 02/13/24 10:25 Leukocyte Esterase (Auto) 0 Lisy/uL 02/13/24 10:25 The patient has a past medical history of renal calculi. I did do a urinalysis just to be sure there was no hematuria. Assessment & Plan Assessment & Plan (1) Hernia of abdominal wall: Code(s): K43.9 - Ventral hernia without obstruction or gangrene Plan: I advised the patient to be seen by Urology. I also suggested he not do any heavy lifting or aggressive sports until he is seen and evaluated Plan See plan Orders: Orders AMB Urinalysis Automated Today Z13.9 - Encounter for screening, unspecified Coding Level of Care Code Est Pt Level 3 (08049) Diagnoses Hernia of abdominal wall K43.9
[2024-02-13 09:44] VITALS: BP 102/74; PULSE 74; TEMP 36.8; O2SAT 97; BMI 26.2
== END 2024-02-13 10:52 | disposition home or self-care (01) ==
PROVIDERS: PCP Nurse Practitioner Family; Visit Provider Physician Assistant Medical
DX: K43.9 Ventral hernia without obstruction or gangrene (principal); Z13.9 Encounter for screening, unspecified
CPT/HCPCS: 81003; 99213

== ENCOUNTER 2024-02-19 10:59 | Outpatient (AMB) | payer OTHER, SELFPAY ==
--- NOTE | 2024-02-19 11:02 | A.OFFPC_ITS ---
Vital Signs 02/19/24 11:17 Height 5 ft 11 in Weight 187 lb BMI 26.1 BP 126/84 Blood Pressure Location Lt brachial Position Sitting Pulse 74 Pulse Source Pulse Oximeter Temp 98.9 F Temp Source Oral Pulse Oximetry (%) 98 Oxygen Delivery Method Room Air Intake Visit Reasons: groin/abd disc Intake Note: Patient here to come up w/a plan as he has been having groin area and low grade fevers for about 1 week, pt states he has discomfort and has traveled to the other side. Allergies dimenhydrinate [From DRAMAMINE] Allergy (Unknown, Verified 02/19/24 11:16) UNKNOWN lisinopril [LISINOPRIL] Allergy (Unknown, Verified 02/19/24 11:16) ANGIOEDEMA, swollen face/lips/mouth/eyes gasoline Allergy (Unknown, Uncoded 02/19/24 11:16) hives Medication List - Last Reconciled 02/19/24 by FABIAN Astudillo atorvastatin 10 mg PO BEDTIME Tobacco use date assessed: 12/07/23 Dental Screening Dental Screen Date: 12/07/23 HPI groin/abd disc HPI Details Pt was seen in the walk-in on 02/12 c/o left lower abdominal pain. Pt had no palpable mass, though he had pain with palpation of his inguinal region. Pt was referred to general surgery for possible inguinal hernia. Pt reports ongoing pain and intermittent fevers up to 100 degrees. He reports pain that moves to his testicles. Will order CT. Denies chills, N/V/D, and constipation. PFSH Surgical History Hx of colonoscopy No pertinent past surgical history Family History Father No problems noted. Mother HTN (hypertension) Maternal Grandfather Myocardial infarction Maternal Uncle Myocardial infarction Social History Household Members Other:: tony rodriguez Housing: House Are you a primary senior care manager to a significant other at home: No Do you presently have visiting nurse or other home services: No Alcohol intake: never Patient Tobacco Use Status: Current someday Tobacco user Tobacco use type: Cigarette Years Smoked: 5 years ago e-Cigarette/Vaping Use: Currently Using Second Hand Smoke Exposure: No service: No Current occupational status: employed Current occupation: [employer] Current occupational exposures/hazards: No Cognitive needs: No Hearing needs: No Vision needs: No Questionnaire PHQ-9 Over the last 2 weeks, how often have you been bothered by any of the following problems? 1. Little interest or pleasure in doing things: not at all 2. Feeling down, depressed, or hopeless: not at all 3. Trouble falling or staying asleep, or sleeping too much: not at all 4. Feeling tired or having little energy: not at all 5. Poor appetite or overeating: not at all 6. Feeling bad about yourself - or that you are a failure or have let yourself or your family down: not at all 7. Trouble concentrating on things, such as reading the newspaper or watching television: not at all 8. Moving or speaking so slowly that other people could have noticed. Or the opposite - being so fidgety or restless that you have been moving around a lot more than usual: not at all 9. Thoughts that you would be better off or of hurting yourself in some way: not at all Total score: 0 Source: Developed by Drs. Ishmael Peres, Maria Villasenor, Alex Ureña and colleagues, with an educational karyn from [employer]. Thrive Questionnaire Date Thrive assessed: 07/05/23 I am a: Patient What is your living situation today?: I have a steady place to live Within the past 12 months, did the food you bought not last and you didn't have the money to get more?: Never true Within the past 12 months, did you worry whether your food would run out before you got money to buy more?: Never true Do you have trouble paying for medicines?: No Do you have trouble getting transportation to medical appointments?: No Do you have trouble paying your heating and electricity bill?: No Do you have trouble taking care of your child, family member or friend?: No Do you have trouble with day-to-day activities such as bathing, preparing meals, shopping, managing finances, etc.?: No Are you currently unemployed and looking for a job?: No Are you interested in more education?: No Please select the resources that you would like help with: Housing/Care Home Currently or been in a relationship where the following occur: No concerns reported THRIVE Score: 0 AUDIT C Alcohol Use Questionnaire (AUDIT-C) 1. How often do you have a drink containing alcohol?: Never Total Score: 0 LYNN-7 AMB Questionnaire LYNN-7 Date LYNN - 7 assessed: 07/05/23 Feeling nervous, anxious, or on edge: 0 = Not at all Not being able to stop or control worryin = Not at all Worrying too much about different things: 0 = Not at all Trouble relaxin = Not at all Being so restless that it is hard to sit still: 0 = Not at all Becoming easily annoyed or irritable: 0 = Not at all Feeling afraid as if something awful might happen: 0 = Not at all Total LYNN-7 score (0-4 normal; 5-9 mild; 10-14 moderate; 15-21 severe): 0 Source: Developed by Drs. Ishmael Peres, Maria Villasenor, Alex Ureña and colleagues, with an educational karyn from [employer]. Review of Systems Const Reports as per HPI Physical exam (Primary Care) Vital Signs: Last Vital Signs Temp 98.9 F 02/19/24 11:17 Pulse 74 02/19/24 11:17 BP 126/84 02/19/24 11:17 Pulse Ox 98 02/19/24 11:17 Oxygen Delivery Method Room Air 02/19/24 11:17 BMI result Body Mass Index 26.1 Tobacco/Smoking Status: Tobacco use Status Tobacco use date assessed 12/07/23 02/19/24 11:04 Patient Tobacco Use Status Current someday Tobacco 02/19/24 11:04 Tobacco use type Cigarette 02/19/24 11:04 e-Cigarette/Vaping Use Currently Using 02/19/24 11:04 PHQ-9: PHQ-9 Score PHQ-9: Total score 0 02/19/24 12:10 Thrive Assessment: Date of Thrive Assessment Date Thrive assessed 07/05/23 02/19/24 11:04 Currently or been in a relationship where the following occur: No concerns reported Const General: cooperative Orientation/consciousness: patient oriented x3 Resp Auscultation: clear to auscultation bilaterally Cardio Rate: regular rate Rhythm: regular rhythm Heart sounds: S1 normal heart sound present and S2 normal heart sound present GI Other: inguinal tenderness (mostly to left), no palpable hernia Neuro General: patient oriented x3 Psych Appearance: grossly normal Mental Status: mental status grossly normal Speech and movement: Normal speech and movement present Affect: normal affect Attitude: cooperative Thought process: Normal thought process present Thought content: Normal thought content present Insight: Good insight present (Psych) Judgement: Good judgement present (Psych) Assessment and Plan Assessment & Plan (1) Groin pain: Code(s): R10.30 - Lower abdominal pain, unspecified Plan The patient agreed to the use of a medical staff credentialing coordinator for this encounter. Scribed for FABIAN Sandoval by Martha Gordon medical staff credentialing coordinator, on 02/19/2024 at 11:25 EST. Orders: Orders Comprehensive Met. Panel Today R10.30 - Lower abdominal pain, unspecified CT abdomen pelvis w IV con Today R10.30 - Lower abdominal pain, unspecified Coding Level of Care Code Est Pt Level 3 (88514) Diagnoses Groin pain R10.30
[2024-02-19 11:17] VITALS: BP 126/84; PULSE 74; TEMP 37.2; O2SAT 98; BMI 26.1
== END 2024-02-19 12:54 | disposition home or self-care (01) ==
PROVIDERS: PCP Nurse Practitioner Family; Visit Provider Nurse Practitioner Family
DX: R10.30 Lower abdominal pain, unspecified (principal)
CPT/HCPCS: 99213

== ENCOUNTER 2024-02-23 09:17 | Outpatient (REF) | payer OTHER, SELFPAY ==
[2024-02-23 11:41] LABS: Alanine Aminotransferase 58 U/L (0-40); Albumin Level 4.3 g/dL (3.5-5.0); Alkaline Phosphatase 97 U/L (39-117); Anion Gap 16 (12-20); Aspartate Amino Transferase 34 U/L (5-37); Bilirubin Total 0.4 mg/dL (0.0-1.0); Blood Urea Nitrogen 17 mg/dL (9-16); Calcium 9.7 mg/dL (8.4-10.2); Carbon Dioxide 25 mmol/L (22-29); Chloride 105 mmol/L (96-108); Estimated Glomerular Filt Rate > 60; Glucose Random 83 mg/dL (60-115); Potassium 4.5 mmol/L (3.3-5.1); Sodium 141 mmol/L (135-145); Total Protein 7.4 g/dL (6.5-8.0)
== END 2024-02-23 09:18 | disposition home or self-care (01) ==
LOC: HO.HMGCLDS 09:17
PROVIDERS: PCP Nurse Practitioner Family; Visit Provider Nurse Practitioner Family
DX: R10.30 Lower abdominal pain, unspecified (principal)
CPT/HCPCS: 36415; 80053

== ENCOUNTER 2024-02-26 12:06 | Outpatient (REF) | payer OTHER, SELFPAY ==
--- NOTE | ~2024-02-26 | CT_ITS ---
EXAMINATION: CT ABDOMEN AND PELVIS WITH CONTRAST CLINICAL INFORMATION: Lower abdominal pain. COMPARISON: 09/25/2015 TECHNIQUE: Multidetector volumetric images were obtained from the superior aspect of the liver through the pubic symphysis following administration 60 mL of Omnipaque 350 intravenous contrast. Sagittal and coronal reformatted images were obtained on the technologist's workstation. Oral contrast: No This CT examination was performed using dose optimization techniques as appropriate, variously including the following: *Automated exposure control *Adjustment of mA and/or kV according to patient size (this includes techniques or standardized protocols for targeted exams where dose is matched to indication/reason for exam; i.e. extremities or head) *Use of iterative reconstruction technique DLP: 361 mGy-cm FINDINGS: LUNG BASES: No pleural or pericardial effusion. LIVER, GALLBLADDER, AND BILIARY TREE: The liver is decreased in attenuation. No focal hepatic lesion or biliary ductal dilatation is present. The gallbladder is unremarkable with no evidence of radiopaque gallstones, gallbladder wall thickening, or obvious pericholecystic inflammatory changes. PANCREAS: Unremarkable. SPLEEN: Unremarkable. ADRENAL GLANDS: Unremarkable. KIDNEYS AND URETERS: The kidneys are symmetric in size and enhancement. Punctate bilateral nonobstructing renal calculi. No hydronephrosis or perinephric stranding. BLADDER: Unremarkable. GASTROINTESTINAL TRACT: Small and large bowel loops are of normal caliber. No small bowel obstruction. Appendix is within normal limits. Moderate fecal retention in the colon. ABDOMINAL WALL: No significant hernia is appreciated. LYMPH NODES: Subcentimeter mesenteric lymph nodes are nonspecific. VASCULAR: Normal caliber abdominal aorta. PELVIC VISCERA: Unremarkable. OSSEOUS STRUCTURES: No destructive bone lesions. Old L1 compression fracture. Degenerative disc disease at L5-S1. CT/CT abdomen pelvis w IV con IMPRESSION: No acute abnormality in the abdomen or pelvis. Punctate bilateral nonobstructing renal calculi. No hydronephrosis.
[2024-02-26] MEDS: iohexoL 350 MG/ML 100 ML INFUS..BTL IV (12:45)
== END 2024-02-26 12:07 | disposition home or self-care (01) ==
LOC: HO.CT 12:06
PROVIDERS: PCP Nurse Practitioner Family; Visit Provider Nurse Practitioner Family
DX: R10.30 Lower abdominal pain, unspecified (principal)
CPT/HCPCS: 74177; Q9967

== ENCOUNTER 2024-02-27 10:07 | Outpatient (AMB) | payer OTHER, SELFPAY ==
--- NOTE | 2024-02-27 10:16 | A.OFFVIS_ITS ---
Vital Signs 02/27/24 10:22 Height 5 ft 11 in Weight 186 lb BMI 25.9 BP 118/80 Blood Pressure Location Rt brachial Position Sitting Pulse 53 Intake Visit Reasons: ? inguinal hernia Intake Note: Patient referred by pcp Isael Guerra PA-C for ? inguinal hernia. Patient c/o: feels bumps. Denies pain. Recent ABD US 02-26-2024. 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 Patient was quite active athletically playing a variety of sports as well as lifting weights. Noticed bilateral groin and upper thigh discomfort while doing a variety of activities ranging from tenderness to weight lifting as noted above. He has not noticed any bulge or swelling in his groins. He otherwise tolerates a diet, has regular bowel habits. No other GI issues or complaints. Patient's physician referred him here to rule out any inguinal hernia. Chart was reviewed and patient evaluated [facility] Surgical History Hx of colonoscopy No pertinent past surgical history Family History Father No problems noted. Mother HTN (hypertension) Maternal Grandfather Myocardial infarction Maternal Uncle Myocardial infarction Social History Household Members Other:: tony rodriguez Housing: House Are you a primary janitor caretaker to a significant other at home: No Do you presently have visiting nurse or other home services: No Alcohol intake: never Patient Tobacco Use Status: Current someday Tobacco user Tobacco use type: Cigarette Years Smoked: 5 years ago e-Cigarette/Vaping Use: Currently Using Second Hand Smoke Exposure: No service: No Current occupational status: employed Current occupation: [employer] Current occupational exposures/hazards: No Cognitive needs: No Hearing needs: No Vision needs: No Physical Exam Vital Signs: Last Vital Signs Pulse 53 02/27/24 10:22 BP 118/80 02/27/24 10:22 BMI result Body Mass Index 25.9 GI Other: Patient was examined both supine and standing with Valsalva. Abdomen is soft, no evidence vent any umbilical hernia. Benign. Bilateral groin exam demonstrates no obvious inguinal hernias. Genitalia grossly within normal limits. Assessment & Plan Assessment & Plan (1) Groin pain: Code(s): R10.30 - Lower abdominal pain, unspecified Category: Surgical Plan At present, no obvious inguinal hernias demonstrated. Patient most probably has a muscle strain/pull involving his groin musculature. Current recommendation is to avoid strenuous activities, ice or heat to the area whichever improved symptoms, avoiding aggravating activities, Aleve or Motrin or Tylenol p.r.n. pain. Patient otherwise follow-up p.r.n.. All questions answered. Should his symptoms progress or worsen, he is prepped, he has been instructed to call the office. Coding Level of Care Code New Pt Level 4 (40322) Diagnoses Groin pain R10.30
[2024-02-27 10:22] VITALS: BP 118/80; PULSE 53; BMI 25.9
== END 2024-02-27 10:41 | disposition home or self-care (01) ==
PROVIDERS: PCP Nurse Practitioner Family; Referring Provider Nurse Practitioner Family; Visit Provider Surgery
DX: R10.30 Lower abdominal pain, unspecified (principal)
CPT/HCPCS: 99203

== ENCOUNTER → 2024-02-27 10:07 | Outpatient (BNVA) | payer OTHER, SELFPAY | PROVIDERS: PCP Nurse Practitioner Family; Referring Provider Nurse Practitioner Family; Visit Provider Surgery ==

== ENCOUNTER 2024-05-16 10:49 | Outpatient (AMB) | payer OTHER, SELFPAY ==
[2024-05-16 11:03] VITALS: BMI 26.1
--- NOTE | 2024-05-16 11:03 | A.OFFVIS_ITS ---
VS Expanded 05/16/24 11:03 Height 5 ft 11 in Weight 186 lb 15.232 oz BMI 26.1 Intake Visit Reasons: Disease of digestive system, unspecified/LVM Allergies dimenhydrinate [From DRAMAMINE] Allergy (Unknown, Verified 02/27/24 10:21) UNKNOWN lisinopril [LISINOPRIL] Allergy (Unknown, Verified 02/27/24 10:21) ANGIOEDEMA, swollen face/lips/mouth/eyes gasoline Allergy (Unknown, Uncoded 02/27/24 10:21) hives Nutrition Presentation Details: Pt presents for MNT for unspecified digestive issues Pt c/o increased gassiness and often lack of bowel movement Pt reports choosing dairy free milk the majority of the time Typical meal Slovenian muffin with peanut butter, protein shake (whey with almond milk) one protein bar snack Eggo waffles/jam,water /coffee L: lunch meat on white bread or frozen burrito D: Benson's pie , water/coffee Takes a daily probiotic BS Monitoring Most Recent Diabetes Results: Cholesterol 137 mg/dL (<200) 12/06/23 HDL Cholesterol 53 mg/dL (>40) 12/06/23 Triglycerides 57 mg/dL (<150) 12/06/23 Creatinine 0.83 mg/dL (0.5-1.4) 02/23/24 Blood Urea Nitrogen 17 mg/dL (9-16) H 02/23/24 Sodium 141 mmol/L (135-145) 02/23/24 Potassium 4.5 mmol/L (3.3-5.1) 02/23/24 Chloride 105 mmol/L (96-108) 02/23/24 Carbon Dioxide 25 mmol/L (22-29) 02/23/24 Calcium 9.7 mg/dL (8.4-10.2) 02/23/24 AST 34 U/L (5-37) 02/23/24 ALT 58 U/L (0-40) H 02/23/24 Total Protein 7.4 g/dL (6.5-8.0) 02/23/24 Albumin 4.3 g/dL (3.5-5.0) 02/23/24 YDI-Atmaanx-Kg.Jeor Equation Height: 5 ft 11 in Weight: 187 lb Resting Metabolic Rate: 1728.57 Calculated Activity Level: Mild Activity Calories Needed to Maintain Weight: 2376.78 Diagnosis Nutrition problem #1: food nutri know defi As related to (etiology) #1: diagnosis As evidenced by (sign/symptom) #1: knowledge deficit of diet PFSH Surgical History Hx of colonoscopy No pertinent past surgical history Family History Father No problems noted. Mother HTN (hypertension) Maternal Grandfather Myocardial infarction Maternal Uncle Myocardial infarction Social History Household Members Other:: tony rodriguez Housing: House Are you a primary child care centre director to a significant other at home: No Do you presently have visiting nurse or other home services: No Alcohol intake: never Patient Tobacco Use Status: Current someday Tobacco user Tobacco use type: Cigarette Years Smoked: 5 years ago e-Cigarette/Vaping Use: Currently Using Second Hand Smoke Exposure: No service: No Current occupational status: employed Current occupation: [employer] Current occupational exposures/hazards: No Cognitive needs: No Hearing needs: No Vision needs: No Assessment & Plan Assessment & Plan (1) Digestive problems: Code(s): K92.9 - Disease of digestive system, unspecified Category: Medical Plan: Wt: 85 Kg ( 05/09 ) Est kcal needs as per MSJ: 2500 (40% carb, 30% protein/fat) Est fluid needs as per 25-30 ml/d: 2600 Est prot per day as per 1 g/kg bw: 85 Recommend fiber intake : 8-10 g per day and gradually increase to 25-28 g per day for women and 35-38 g for men or as tolerated Recommend sodium intake per day : less than 2300 mg Educated patient on: ( R = reviewed V = verbalizes understanding N/R = needs review N/A = not applicable * Differences between complex carbohydrates a simple carbohydrates, role of fiber in diet: R V * Lactose free options: R * Patient Instructions: Caution with foods with lactose (whey , butter, creams, cheese) try vegan protein powder, choose vegan butter, have potatoes/baked/steamed vs mashed with cheese/butter as an example Choose foods with fiber,: vegetables, fruits and increase water as you increase fiber intake to prevent constipation Coding Level of Care Code Nutr Indiv Intake (08941) Diagnoses Digestive problems K92.9 Time Spent (min) 30
[2024-05-16 11:41] VITALS: BMI 26.1
== END 2024-05-16 11:30 | disposition home or self-care (01) ==
LOC: HO.ENCR 10:50
PROVIDERS: PCP Nurse Practitioner Family; Visit Provider Dietitian, Registered
DX: K92.9 Disease of digestive system, unspecified (principal)

== ENCOUNTER → 2024-05-16 10:49 | Outpatient (BNVA) | payer OTHER, SELFPAY | PROVIDERS: PCP Nurse Practitioner Family; Visit Provider Dietitian, Registered | DX: K92.9 Disease of digestive system, unspecified (principal); Z71.3 Dietary counseling and surveillance | CPT/HCPCS: 97802 ==

== ENCOUNTER 2024-07-11 08:51 | Outpatient (AMB) | payer OTHER, SELFPAY ==
--- NOTE | 2024-07-11 08:57 | MHC.PC.OV ---
Vital Signs 07/11/24 08:59 Height 5 ft 11 in Weight 191 lb BMI 26.6 BP 110/70 Blood Pressure Location Lt brachial Position Sitting Pulse 67 Pulse Source Pulse Oximeter Pulse Oximetry (%) 95 Oxygen Delivery Method Room Air Intake Visit Reasons: PE Intake Note: Pt is here today for PE. Allergies dimenhydrinate [From DRAMAMINE] Allergy (Unknown, Verified 07/11/24 09:00) UNKNOWN lisinopril [LISINOPRIL] Allergy (Unknown, Verified 07/11/24 09:00) ANGIOEDEMA, swollen face/lips/mouth/eyes gasoline Allergy (Unknown, Uncoded 07/11/24 09:00) hives Tobacco use date assessed: 07/11/24 Dental Screening Dental Screen Date: 07/11/24 Did you have a dental visit in the last 12 months?: Yes Did you have a dental problem in the last 6 months where you did not have access to dental care?: No Was dental information given to patient?: Patient has dentist HPI PE HPI Details History of Present Illness The patient is a 53-year-old male presenting with an interest in gaining muscle mass. He has been engaging in regular gym activities. During this visit, he sought guidance on dietary modifications to support his muscle growth goals. colon screen is up to date, pt denies any urinary symptoms or Hx of prostate ca Health Maintenance - Discussed the importance of increasing protein and water consumption. - Encouraged monitoring of sweet intake and carbohydrate content. - No specific vaccinations or screenings were discussed. Social History - Regular gym attendance for exercise. Review of Systems - Cardiovascular: Denies chest pain. - Respiratory: Denies shortness of breath. - Gastrointestinal: Reports intermittent diarrhea; denies abdominal pain and blood in stool. - Neurological: Denies numbness, tingling, blurred vision, and headache. - Psychological: Denies suicidal ideation and homicidal ideation. Physical Exam General: Cooperative, healthy appearing, comfortable, no acute distress and well developed Orientation: Patient oriented x3 Limitations: No limitations Head: Normal to inspection Ears: Hearing grossly normal bilaterally Nose: Normal external nose present Face and sinus: Normal facial exam Eyes: Appearance normal, both eyes and all related structures Neck: Normal visual inspection and Yes full ROM Respiratory: Normal respiratory effort and able to speak in complete sentences. Clear to auscultation bilaterally Cardiovascular: Regular rate and rhythm. Normal S1 and S2 GI: Normal to inspection. Soft to palpation and nontender Skin: No rashes or lesions noted Neuro: Patient oriented x3 Extremities: Normal to inspection, no edema Results - Labs: Pending Plan - Reinforcement of nutritional modifications to support muscle gain, emphasizing the increase in protein and water intake. - Monitor and manage intermittent diarrhea as needed. - Lab work has been ordered for further evaluation. Patient was informed and verbally consented to the use of an ambient scribe for clinic note documentation during this visit. Discussion Notes I discussed with the patient the importance of dietary measures to support his muscle gain goals, particularly focusing on increasing protein and fluid intake. We addressed the need to monitor his dietary habits, specifically reducing sweets and carbohydrate intake. I ordered laboratory tests to help in assessing overall health status and to rule out any underlying issues related to his gastrointestinal symptoms. We agreed to follow up on these concerns after reviewing the lab results. Patient Instructions - Increase protein and water consumption for muscle gain. - Continue monitoring and reducing sweet and carbohydrate intake. - Report any worsening of gastrointestinal symptoms. - Follow up with lab results as discussed. [facility] Surgical History Hx of colonoscopy No pertinent past surgical history Family History Father No problems noted. Mother HTN (hypertension) Maternal Grandfather Myocardial infarction Maternal Uncle Myocardial infarction Social History Household Members Other:: tony rodriguez Housing: House Are you a primary urgent care physician to a significant other at home: No Do you presently have visiting nurse or other home services: No Alcohol intake: never Patient Tobacco Use Status: Current someday Tobacco user Tobacco use type: Cigarette Years Smoked: 5 years ago e-Cigarette/Vaping Use: Currently Using Second Hand Smoke Exposure: No service: No Current occupational status: employed Current occupation: [employer] Current occupational exposures/hazards: No Cognitive needs: No Hearing needs: No Vision needs: No Questionnaire PHQ-9 Over the last 2 weeks, how often have you been bothered by any of the following problems? 1. Little interest or pleasure in doing things: not at all 2. Feeling down, depressed, or hopeless: not at all 3. Trouble falling or staying asleep, or sleeping too much: not at all 4. Feeling tired or having little energy: not at all 5. Poor appetite or overeating: not at all 6. Feeling bad about yourself - or that you are a failure or have let yourself or your family down: not at all 7. Trouble concentrating on things, such as reading the newspaper or watching television: not at all 8. Moving or speaking so slowly that other people could have noticed. Or the opposite - being so fidgety or restless that you have been moving around a lot more than usual: not at all 9. Thoughts that you would be better off or of hurting yourself in some way: not at all Total score: 0 Depression Screening Interpretation: Negative Depression Screening Done: Yes Source: Developed by Drs. Ishmael Peres, Maria Villasenor, Alex Ureña and colleagues, with an educational karyn from [employer]. Thrive Questionnaire Date Thrive assessed: 07/11/24 I am a: Patient What is your living situation today?: I have a steady place to live Within the past 12 months, did the food you bought not last and you didn't have the money to get more?: Never true Within the past 12 months, did you worry whether your food would run out before you got money to buy more?: Never true Do you have trouble paying for medicines?: No Do you have trouble getting transportation to medical appointments?: No Do you have trouble paying your heating and electricity bill?: No Do you have trouble taking care of your child, family member or friend?: No Do you have trouble with day-to-day activities such as bathing, preparing meals, shopping, managing finances, etc.?: No Are you currently unemployed and looking for a job?: No Are you interested in more education?: No Please select the resources that you would like help with: None Currently or been in a relationship where the following occur: No concerns reported THRIVE Score: 0 AUDIT C Alcohol Use Questionnaire (AUDIT-C) 1. How often do you have a drink containing alcohol?: Never 3. How often do you have six or more drinks on one occasion?: Never Total Score: 0 LYNN-7 AMB Questionnaire LYNN-7 Date LYNN - 7 assessed: 07/11/24 Feeling nervous, anxious, or on edge: 0 = Not at all Not being able to stop or control worryin = Not at all Worrying too much about different things: 0 = Not at all Trouble relaxin = Not at all Being so restless that it is hard to sit still: 0 = Not at all Becoming easily annoyed or irritable: 0 = Not at all Feeling afraid as if something awful might happen: 0 = Not at all Total LYNN-7 score (0-4 normal; 5-9 mild; 10-14 moderate; 15-21 severe): 0 Source: Developed by Drs. Ishmael Peres, Maria Villasenor, Alex Ureña and colleagues, with an educational karyn from [employer]. LYNN-7 Assessment Billing LYNN-7 Assessment Tool: LYNN-7 Assessment 24698 Physical exam (Primary Care) Vital Signs: Last Vital Signs Pulse 67 07/11/24 08:59 BP 110/70 07/11/24 08:59 Pulse Ox 95 07/11/24 08:59 Oxygen Delivery Method Room Air 07/11/24 08:59 BMI result Body Mass Index 26.6 Tobacco/Smoking Status: Tobacco use Status Tobacco use date assessed 07/11/24 07/11/24 09:03 Patient Tobacco Use Status Current someday Tobacco 07/11/24 09:03 Tobacco use type Cigarette 07/11/24 09:03 e-Cigarette/Vaping Use Currently Using 07/11/24 09:03 PHQ-9: PHQ-9 Score PHQ-9: Total score 0 07/11/24 09:03 Depression Screening Interpretation: Negative Thrive Assessment: Date of Thrive Assessment Date Thrive assessed 07/11/24 07/11/24 09:03 Currently or been in a relationship where the following occur: No concerns reported Coding Level of Care Code Est Pt Prev Care 40-64y(31494) Diagnoses Physical exam Z00.00 Additional Codes LYNN-7 Assessment Billing - LYNN-7 Assessment Tool: LYNN-7 Assessment 00567 ([id number]) Assessment & Plan Assessment & Plan (1) Physical exam: Code(s): Z00.00 - Encounter for general adult medical examination without abnormal findings Category: Medical Plan . Orders: Orders Comprehensive [place]. Panel Fast Today Z00.00 - Encounter for general adult medical examination without abnormal findings Lipid Panel Today Z00.00 - Encounter for general adult medical examination without abnormal findings Prostate Specific Antigen Scr Today Z12.5 - Encounter for screening for malignant neoplasm of prostate Complete Blood Count Auto Diff Today Z00.00 - Encounter for general adult medical examination without abnormal findings TSH reflex Free T4 Today Z00.00 - Encounter for general adult medical examination without abnormal findings UA CC w/rflx Micro + Cult Today Z00.00 - Encounter for general adult medical examination without abnormal findings
[2024-07-11 08:59] VITALS: BP 110/70; PULSE 67; O2SAT 95; BMI 26.6
== END 2024-07-11 09:48 | disposition home or self-care (01) ==
PROVIDERS: PCP Nurse Practitioner Family; Visit Provider Nurse Practitioner Family
DX: Z00.00 Encounter for general adult medical examination without abnormal findings (principal)

== ENCOUNTER → 2024-07-11 08:51 | Outpatient (BNVA) | payer OTHER, SELFPAY | PROVIDERS: PCP Nurse Practitioner Family; Visit Provider Nurse Practitioner Family | DX: Z00.00 Encounter for general adult medical examination without abnormal findings (principal) | CPT/HCPCS: 96127 ==

== ENCOUNTER 2024-09-19 08:43 | Outpatient (REF) | payer OTHER, SELFPAY ==
[2024-09-19 10:37] LABS: MANUAL DIFF FLAG NO
[2024-09-19 10:54] LABS: Basophils Absolute Auto 0.1 X10*3/uL (0.0-0.2); Basophils Percent Auto 2.2 % (0-2); Eosinophils Absolute Auto 0.1 X10*3/uL (0.0-0.4); Eosinophils Percent Auto 1.9 % (0-4); Hematocrit 45.5 % (42.0-52.0); Hemoglobin 15.3 g/dl (14.0-18.0); Imm Gran Abs Auto 0.02 X10*3/uL (0.00-0.03); Imm Gran Pct Auto 0.3 % (0.0-0.4); Lymphocytes Absolute Auto 2.1 X10*3/uL (1.2-4.9); Lymphocytes Percent Auto 35.1 % (20-40); Mean Corpuscular HGB Conc 33.6 g/dl (31.0-36.0); Mean Corpuscular Hemoglobin 30.9 pg (27.0-33.0); Mean Corpuscular Volume 91.9 fL (80.0-98.0); Mean Platelet Volume 9.6 fL (9.4-12.4); Monocytes Absolute Auto 0.6 X10*3/uL (0.1-1.2); Monocytes Percent Auto 9.3 % (2-11); Neutrophils Percent Auto 51.2 % (45-73); Platelet Count 263 X10*3/uL (160-400); Red Blood Count 4.95 X10*6/uL (4.60-5.80); Red Cell Distribution Width 12.1 % (11.0-16.0); White Blood Count 5.9 X10*3/uL (4.8-10.8)
[2024-09-19 11:18] LABS: Alanine Aminotransferase 33 U/L (0-40); Albumin Level 4.6 g/dL (3.5-5.0); Alkaline Phosphatase 65 U/L (39-117); Anion Gap 11 (12-20); Aspartate Amino Transferase 30 U/L (5-37); Bilirubin Total 0.7 mg/dL (0.0-1.0); Blood Urea Nitrogen 21 mg/dL (9-16); Calcium 9.3 mg/dL (8.4-10.2); Carbon Dioxide 26 mmol/L (22-29); Chloride 106 mmol/L (96-108); Cholesterol 140 mg/dL (<200); Estimated Glomerular Filt Rate > 60; Glucose Fasting 86 mg/dL (60-99); HDL Cholesterol 54 mg/dL (>40); LDL Cholesterol Calculated 76 mg/dL (<100); Potassium 4.3 mmol/L (3.3-5.1); Sodium 139 mmol/L (135-145); Total Protein 7.3 g/dL (6.5-8.0); Triglycerides 52 mg/dL (<150)
[2024-09-19 11:22] LABS: Prostate Specific Antigen Scr 0.86 ng/mL (<0.05-4.0)
[2024-09-19 11:36] LABS: TSH reflex Free T4 0.94 uIU/mL (0.32-4.0)
[2024-09-19 11:44] LABS: Appearance Urine Clear; Color Urine Yellow; Glucose Urine UA Negative (Negative); Leukocyte Esterase Urine Negative (Negative); Nitrite Urine Negative (Negative); PH 7.5 (5.0-9.0); Specific Gravity - Urine 1.015 (1.005-1.025); Urine Blood Negative (Negative); Urine Ketones Negative (Negative); Urine Protein Negative (Neg-Trace)
== END 2024-09-19 08:44 | disposition home or self-care (01) ==
LOC: HO.HMGCLDS 08:43
PROVIDERS: PCP Nurse Practitioner Family; Visit Provider Nurse Practitioner Family
DX: Z00.00 Encounter for general adult medical examination without abnormal findings (principal); Z12.5 Encounter for screening for malignant neoplasm of prostate; Z13.6 Encounter for screening for cardiovascular disorders
CPT/HCPCS: 36415; 80053; 80061; 81003; 84153; 84443; 85025